=== PATIENT | male | born 1985 | race Caucasian/White ===

== ENCOUNTER 2019-10-28 04:45 | Emergency (ER) | payer BC ==
[~2019-10-28] VITALS: Ht 185.4 cm; Wt 123.4 kg
[2019-10-28 04:47] VITALS: BP 142/88
--- NOTE | 2019-10-28 04:57 | NUR ---
PT AMBULATED TO BED #11
[2019-10-28] MEDS ORDERED: DICYCLOMINE HCL LIQUID 20 MG, ALUMINUM HYD/MAG/SIMETHICONE 30 ML, LIDOCAINE VISCOUS 2% ... PO ONE ×3 (05:05)
[2019-10-28] MEDS ORDERED: ALUMINUM HYD/MAG/SIMETHICONE 30 ML UDC ONE (05:05)
[2019-10-28] MEDS ORDERED: LIDOCAINE VISCOUS 2% 20 ML UDC ONE (05:05)
[2019-10-28] MEDS ORDERED: DICYCLOMINE HCL LIQUID 10 MG/5 ML UDC ONE (05:07)
--- NOTE | 2019-10-28 05:24 | NUR ---
34 Y/O MALE PRESENTS TO ED, C/O EPIGASTRIC PAIN. PT STATES HE HAD SIMILAR PAIN A MONTH AGO, ON GOING BUT WORSENED TODAY. C/O N/V FOR THE PAST 3 HOURS. DENIES TAKING ANY MEDICATIONS PRIOR TO VISIT TO ER. DENIES DIARRHEA. PT VSS. ERMD AWARE. WILL CONTINUE TO MONITOR.
[2019-10-28] MEDS ORDERED: KETOROLAC 30 MG/ML VIAL IM ONE (05:45)
[2019-10-28 06:38] LABS: ANION GAP 15.4 (8-16); CARBON DIOXIDE 25.8 mmol/L (21-32); CREATININE 0.9 mg/dL (0.7-1.3); POTASSIUM 4.2 mmol/L (3.5-5.1)
[2019-10-28 06:43] LABS: TOTAL BILIRUBIN 0.3 mg/dL (0.0-1.0)
[2019-10-28 07:00] VITALS: BP 138/78
--- NOTE | 2019-10-28 07:00 | NUR ---
PT DISCHARGED WITH PAPERWORK. EDUCATED PT REGARDING D/C INSTRUCTIONS AND MEDICATIONS. PT VERBALIZED UNDERSTANDING OF TEACHING. TOLD PT TO FOLLOW UP WITH PCP AND WHEN TO RETURN TO ED. PT AT STABLE CONDITION. STATES IMPROVED PAIN RELIEF. ALL QUESTIONS ANSWERED.
== END 2019-10-28 07:00 | disposition home or self-care (01) ==
LOC: MED 04:45
DX: R10.10 Upper abdominal pain, unspecified (principal)
CPT/HCPCS: 36415; 80053; 83690; 96372; 99283; J1885

== ENCOUNTER 2020-01-29 11:08 | Emergency (ER) | payer BC ==
[~2020-01-29] VITALS: Ht 185.4 cm; Wt 117.9 kg
[2020-01-29 11:17] VITALS: BP 155/92
--- NOTE | 2020-01-29 11:35 | NUR ---
34/M C/O POUNDING LEFT FRONTAL HEAD PAIN/HEADACHE S/P BRICK FALLING ON AFFECTED AREA FROM 2 FT ABOVE HEAD X 1 WEEK AGO. DENIES LOC OR N/V. DENIES DIZZINESS OR WEAKNESS. STATES LEFT FOREHEAD REDNESS & SWELLING X 2 DAYS & WOKE UP THIS AM LEFT UPPER EYELID SWELLING. DENIES VISUAL CHANGES. LAST TETANUS VACCINE THIS YEAR (2019). MED HX: DENIES
--- NOTE | 2020-01-29 11:35 | NUR ---
STATES BLEEDING FROM LT HEAD AFTER INJURY NO BLEEDING NOW. SCAB NOTED ON LEFT FOREHEAD.
--- NOTE | 2020-01-29 11:39 | NUR ---
DR. HERNANDEZ EVALUATING PT AT BEDSIDE
[2020-01-29] MEDS ORDERED: CEPHALEXIN 500 MG CAP PO ONE (11:45)
[2020-01-29] MEDS ORDERED: SULFAMETH/TRIMETH DS 800/160MG 1 TAB PO ONE (11:45)
[2020-01-29] MEDS ORDERED: KETOROLAC 30 MG/ML VIAL IM ONE (11:45)
--- NOTE | 2020-01-29 12:28 | NUR ---
Patient discharged with v/s stable. Written and verbal after care instructions given and explained. Patient alert, oriented and verbalized understanding of instructions. Ambulatory with steady gait. All questions addressed prior to discharge. ID band removed. Patient advised to follow up with PMD. Rx of BACTRIM, KEFLEX, MOTRIN given. Patient educated on indication of medication including possible reaction and side effects. Opportunity to ask questions provided and answered.
[2020-01-29 12:30] VITALS: BP 129/70
== END 2020-01-29 12:28 | disposition home or self-care (01) ==
LOC: MED 11:08
DX: H00.036 Abscess of eyelid left eye, unspecified eyelid (principal); F17.210 Nicotine dependence, cigarettes, uncomplicated; Z98.890 Other specified postprocedural states; Z71.6 Tobacco abuse counseling
CPT/HCPCS: 96372; 99283; J1885

== ENCOUNTER 2020-04-08 02:12 | Emergency (ER) | payer BC ==
[~2020-04-08] VITALS: Ht 185.4 cm; Wt 122.0 kg
[2020-04-08 02:14] VITALS: BP 148/100
--- NOTE | 2020-04-08 02:20 | NUR ---
PT AMBULATED TO BED 04 WITH STEADY GAIT.
[2020-04-08] MEDS ORDERED: ONDANSETRON 4 MG/2 ML VIAL IVP ONE (02:30)
[2020-04-08] MEDS ORDERED: MORPHINE SULFATE 2 MG/ML SYR IVP ONE (02:30)
[2020-04-08] MEDS ORDERED: PANTOPRAZOLE 40 MG INJ VIAL IVP ONE (02:30)
[2020-04-08] MEDS ORDERED: NACL 0.9% 1,000 ML IV ONE (02:30)
--- NOTE | 2020-04-08 02:50 | NUR ---
LABS DRAWN AND SENT TO LAB
--- NOTE | 2020-04-08 02:53 | NUR ---
PT C/O ABD PAIN X 1 HR, +N/V X 4, HX OF STOMACH ULCER, AND GERD. DENIES DIARRHEA, NO BLACK OR BLOODY STOOLS. PT THRASHING AND YELLING ON THE BED. 1 PRIOR EPISODE LIKE THIS ONE. BED IN LOWEST POSITION AND SIDE RAIL UP X 1 NKA GERD, ULCER
[2020-04-08 02:59] LABS: ANION GAP 15.5 (8-16); CARBON DIOXIDE 26.4 mmol/L (21-32); CREATININE 1.2 mg/dL (0.6-1.3); POTASSIUM 3.9 mmol/L (3.5-5.1)
--- NOTE | 2020-04-08 03:01 | NUR ---
PT RESTING MORE COMFORTABLY AND CALMLY AT THIS TIME. WILL CONTINUE TO MONITOR.
[2020-04-08 03:05] LABS: TOTAL BILIRUBIN 0.3 mg/dL (0.0-1.0)
--- NOTE | 2020-04-08 03:07 | NUR ---
PT MD SALVATORE GRIMES AT BEDSIDE
[2020-04-08] MEDS ORDERED: LIDOCAINE VISCOUS 2% 20 ML UDC PO ONE (03:10)
[2020-04-08] MEDS ORDERED: DICYCLOMINE HCL LIQUID 10 MG/5 ML UDC PO ONE (03:10)
[2020-04-08] MEDS ORDERED: ALUMINUM HYD/MAG/SIMETHICONE 30 ML UDC PO ONE (03:10)
[2020-04-08 03:18] LABS: BASOPHILS # (AUTO) 0.1 K/uL (0.00-0.22); BASOPHILS % (AUTO) 0.7 % (0.0-2.0); EOSINOPHILS # (AUTO) 0.4 K/uL (0-0.4); EOSINOPHILS % (AUTO) 3.1 % (0.0-4.0); HEMATOCRIT 43.8 % (36-52); HEMOGLOBIN 14.5 g/dL (12.0-18.0); LYMPHOCYTES # (AUTO) 2.7 K/uL (2.0-11.5); MEAN CORPUSCULAR HEMOGLOBIN 28 pg (27-31); MEAN CORPUSCULAR HGB CONC 33 g/dL (33-37); MEAN CORPUSCULAR VOLUME 85.5 fL (80-94); MONOCYTES # (AUTO) 0.5 K/uL (0.8-1.0); MONOCYTES % (AUTO) 4.5 % (1.7-9.3); NEUTROPHILS # (AUTO) 8.1 K/uL (1.8-7.7); PLATELET COUNT (AUTO) 219 K/uL (140-450); RED BLOOD CELL COUNT(AUTO) 5.13 MIL/uL (4.20-6.10); RED CELL DISTRIBUTION WIDTH 13.8 % (11.6-13.7); WHITE BLOOD COUNT (AUTO) 11.7 K/uL (4.8-10.8)
[2020-04-08 03:19] LABS: NEUTROPHILS % (AUTO) 68.7 % (42.2-75.2)
[2020-04-08] MEDS ORDERED: KETOROLAC 30 MG/ML VIAL IVP ONE (03:20)
--- NOTE | 2020-04-08 03:25 | NUR ---
TOLERATING PO FLUIDS
--- NOTE | 2020-04-08 03:54 | NUR ---
Patient discharged with v/s stable. Written and verbal after care instructions given and explained. Patient alert, oriented and verbalized understanding of instructions. Ambulatory with steady gait. All questions addressed prior to discharge. ID band removed. Patient advised to follow up with PMD. Rx of MAALOX, PROTONIX given. Patient educated on indication of medication including possible reaction and side effects. Opportunity to ask questions provided and answered.
[2020-04-08 03:55] VITALS: BP 139/87
== END 2020-04-08 03:55 | disposition home or self-care (01) ==
LOC: MED 02:12
DX: K29.70 Gastritis, unspecified, without bleeding (principal); R03.0 Elevated blood-pressure reading, without diagnosis of hypertension
CPT/HCPCS: 36415; 80053; 83690; 85025; 96361; 96374; 96375; 99284; C9113; J1885; J2270; J2405; J7030

== ENCOUNTER 2020-11-15 22:26 | Emergency (ER) | payer BC, MEDICAID ==
[~2020-11-15] VITALS: Ht 188 cm; Wt 122.5 kg
[2020-11-15 23:30] VITALS: BP 129/89
--- NOTE | 2020-11-15 23:30 | NUR ---
C/O LOSS OF TASTE, SMELL, HIGUERA, SORE THROAT X 3-4DAYS. NO EXPOSURE. NO RESP DISTRESS NOTED. LUNG SOUNDS CLEAR BILAT UPPER LOBES AND DIMINSHED BILAT LOWER LOBES. VSS. A&O X4. SKIN COLOR NORMAL FOR ETHNICITY. NKDA. PMH: NONE.
--- NOTE | 2020-11-16 | NUR ---
SWAB DONE , SENT TO LAB
[2020-11-16 00:30] VITALS: BP 129/89
--- NOTE | 2020-11-17 14:11 | NUR ---
+ covid result received from lab. Copy given to infection control
== END 2020-11-16 00:30 | disposition home or self-care (01) ==
LOC: MED 22:26
DX: U07.1 COVID-19 (principal); K21.9 Gastro-esophageal reflux disease without esophagitis; F12.90 Cannabis use, unspecified, uncomplicated; Z98.890 Other specified postprocedural states
CPT/HCPCS: 99283; U0003; 99282